=== PATIENT | female | born 1960 | race Caucasian/White ===

== ENCOUNTER 2019-05-08 12:54 | Inpatient (IN) | payer OTHER ==
[2019-05-08 13:33] VITALS: BMI 21.2
--- NOTE | 2019-05-08 14:07 | HP ---
COWS - Scale Resting Pulse: 1= [place] 81-100 Sweatin= Chills/Flushing Restless Observation: 1= Difficult to Sit Still Pupil Size: 2= Moderately Dilated Bone or Joint Aches: 4=Acute Joint/Muscle Pain Runny Nose/ Eye Tearin= Nasal Congestion GI Upset > 30mins: 3= Vomiting/Diarrhea Tremor Observation: 2= Slight Tremor Visible Yawning Observation: 1= 1-2x During Session Anxiety or Irritability: 2=Irritable/Anxious Goose Flesh Skin: 3=Piloerection COWS Score: 21 CIWA Score - Admission Criteria OASAS Guidelines: Admission for Medically Managed Detox: Requires at least one of the followin. CIWA greater than 12 2. Seizures within the past 24 hours 3. Delirium tremens within the past 24 hours 4. Hallucinations within the past 24 hours 5. Acute intervention needed for co occurring medical disorder 6. Acute intervention needed for co occurring psychiatric disorder 7. Severe withdrawal that cannot be handled at a lower level of care (continued vomiting, continued diarrhea, abnormal vital signs) requiring intravenous medication and/or fluids 8. Admitting History and Physical - Admission Chief Complaint: " I need help to stop using" History of Present Illness: 58 year old female with history of opioid dependence with withdrawals. She is seeking detox. She was earlier seen in [facility] where she had CT of head with no intracranial bleeding and no fractures. Also had CXR with prominent hilar region and nodule seen. She was told she possibly has lung cancer. She is using 2 bundles daily, last used 2 days ago, bought methadone yesterday on the [address]. Psych: Depression on meds; lexapro, prozac, lamictal,xanax prescribed by her PMD , Dr. Lenny Sheets in [place] PMH: oxygen dependent COPD, Emphysema Psurg: Broken finger right middle and index; left wrist surgery fracture. SHx: Smokes 2 PPD for many years. Admission [facility] Allergies/Adverse Reactions: Allergies Allergy/AdvReac Type Severity Reaction Status Date / Time No Known Allergies Allergy Verified 05/08/19 13:12 Exam Limitations: No Limitations - Ebola screening Have you traveled outside of the country in the last 21 days: No Have you had contact with anyone from an Ebola affected area: No Have you been sick,other than usual withdrawal symptoms: No Do you have a fever: No - Review of Systems Constitutional: Chills, Diaphoresis, Unintentional Wgt. Loss EENT: reports: No Symptoms Reported Respiratory: reports: No Symptoms reported Cardiac: reports: No Symptoms Reported GI: reports: Diarrhea, Nausea, Abdominal cramping : reports: No Symptoms Reported Musculoskeletal: reports: No Symptoms Reported Integumentary: reports: No Symptoms Reported Neuro: reports: No Symptoms reported Endocrine: reports: No Symptoms Reported Hematology: reports: No Symptoms Reported Psychiatric: reports: Judgement Intact, Mood/Affect Appropiate, Orientated x3 Other Systems: Reviewed and Negative Patient History - Patient Medical History Hx Anemia: No Hx Asthma: No Hx Chronic Obstructive Pulmonary Disease (COPD): Yes Hx Cancer: Yes (nodule recently found) Hx Cardiac Disorders: No Hx Congestive Heart Failure: No Hx Hypertension: Yes Hx Hypercholesterolemia: No Hx Pacemaker: No HX Cerebrovascular Accident: No Hx Seizures: No Hx Dementia: No Hx Diabetes: No Hx Gastrointestinal Disorders: No Hx Liver Disease: No Hx Genitourinary Disorders: No Hx Sexually Transmitted Disorders: No Hx Renal Disease (ESRD): No Hx Thyroid Disease: No Hx Human Immunodeficiency Virus (HIV): No Hx Hepatitis C: No Hx Depression: Yes Hx Suicide Attempt: No Hx Bipolar Disorder: No Hx Schizophrenia: No - Patient Surgical History Past Surgical History: Yes Other Surgical History: finger and wrist - PPD History Previous Implant?: Yes Documented Results: Negative w/o proof Implanted On Prior R Admission?: No Date: 01/17/19 Results: negative PPD to be Administered?: Yes - Smoking Cessation Smoking history: Current every day smoker Have you smoked in the past 12 months: Yes Aproximately how many cigarettes per day: 20 Hx Chewing Tobacco Use: No Initiated information on smoking cessation: Yes 'Breaking Loose' booklet given: 05/08/19 - Substances abused Heroin Other (specify): both IV and sniff Substance route: Injection Frequency: Daily Amount used: 2 bundles Age of first use: 48 Date of last use: 05/07/19 Admission Physical Exam BHS - Vital Signs Vital Signs: Vital Signs - 24 hr 05/08/19 13:12 Temperature 97.3 F L Pulse Rate 86 Respiratory 16 Rate Blood Pressure 133/93 - Physical General Appearance: Yes: Mild Distress, Thin, Tremorous, Irritable, Sweating HEENTM: Yes: EOMI, Hearing grossly Normal, Normal ENT Inspection, Normocephalic , Normal Voice, AXEL, Pharynx Normal, Tm's normal, Other (supraorbital and infraorbital ecchymoses) Respiratory: Yes: Chest Non-Tender, Lungs Clear, Normal Breath Sounds, No Respiratory Distress, No Accessory Muscle Use Neck: Yes: No masses,lesions,Nodules, Supple, Trachea in good position Breast: Yes: Breast Exam Deferred Cardiology: Yes: Regular Rhythm, S1, S2, Tachycardia Abdominal: Yes: Normal Bowel Sounds, Non Tender, Flat, Soft Genitourinary: Yes: Within Normal Limits Back: Yes: Normal Inspection Musculoskeletal: Yes: full range of Motion, Gait Steady, Pelvis Stable Extremities: Yes: Normal Capillary Refill, Normal Inspection, Normal Range of Motion, Non-Tender Neurological: Yes: 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 NML intact, Fully Oriented, Alert, Motor Strength 5/5, Normal Mood/Affect, Normal Response Integumentary: Yes: Normal Color, Warm - Diagnostic (1) Opioid dependence with withdrawal Current Visit: Yes Status: Acute (2) Depression Current Visit: Yes Status: Acute (3) Pulmonary nodule Current Visit: Yes Status: Acute (4) Hypertension Current Visit: Yes Status: Acute Screened but not Admitted - Documentation of Visit Screened but not Admitted: No Breathalyzer - Breathalyzer Breathalyzer: 0 Urine Drug Screen - Test Device Lot number: [id number] Expiration date: 11/14/20 - Control Is test valid?: Yes - Results Drug screen NEGATIVE: No Urine drug screen results: THC-Marijuana, MOP-Opiates, MTD-Methadone, BZO- Benzodiazepines Inpatient Rehab Admission - Rehab Decision to Admit Inpatient rehab admission?: No
[2019-05-08] MEDS ORDERED: METHOCARBAMOL 500 MG TABLET PO PRN (14:14)
[2019-05-08] MEDS ORDERED: ACETAMINOPHEN 325 MG TABLET (FP) PO PRN ×2 (14:14)
[2019-05-08] MEDS ORDERED: MAGNESIUM CITRATE 300 ML BOTTLE PO PRN (14:14)
[2019-05-08] MEDS ORDERED: MAG HYDROX/AL HYDROX/SIMETH 30 ML UNIT-DOSE CUP PO PRN (14:14)
[2019-05-08] MEDS ORDERED: cloNIDine HCL 0.1 MG TABLET PO PRN (14:14)
[2019-05-08] MEDS ORDERED: MENTHOL/PHENOL 1 EACH UD MM PRN (14:14)
[2019-05-08] MEDS ORDERED: METHADONE HCL 10 MG TABLET (FOR DETOX USE ONLY) PO ONE (15:10)
[2019-05-08] MEDS: NICOTINE 21 MG/24 HOURS TOPICAL PATCH TD SCH (15:51)
--- NOTE | 2019-05-08 17:23 | PN ---
"[facility] Progress Note Note: This report was requested by: Kadi Lua | Reference #: [id number] Others' Prescriptions [facility] Date: 1960 Address: [place] [address] Sex: Female Rx Written Rx Dispensed Drug Quantity Days Supply Prescriber Name 05/03/2019 05/03/2019 alprazolam 2 mg tablet 90 30 Viv[facility], [place] 05/03/2019 05/03/2019 dextroamp-amphetamin 30 mg tab 60 30 Vivino , [place] 04/03/2019 04/03/2019 alprazolam 2 mg tablet 90 30 [facility], [place] 04/03/2019 04/03/2019 dextroamp-amphetamin 30 mg tab 60 30 Vivino , [place] 03/06/2019 03/06/2019 dextroamp-amphetamin 30 mg tab 60 30 Vivino , [place] 03/06/2019 03/06/2019 alprazolam 2 mg tablet 90 30 [facility], [place] 01/29/2019 02/02/2019 alprazolam 2 mg tablet 90 30 [facility], [place] 01/29/2019 02/02/2019 dextroamp-amphetamin 30 mg tab 60 30 [facility] , [place] 01/23/2019 01/24/2019 bup[facility]ine[facility] 8[facility]2 [facility] 01/08/2019 alprazolam 2 mg tablet 90 30 [facility], [place] 01/04/2019 01/08/2019 dextroamp-amphetamin 30 mg tab 60 30 [facility] , [place] 11/09/2018 11/12/2018 dextroamp-amphetamin 30 mg tab 60 30 [facility] , [place] 11/09/2018 11/12/2018 [facility]olam [facility] [address] tablet [address] [facility] [place] Patient Name: [facility] Date: 1960 Address: [address] [place], [place] [address] [address] Sex: Female Rx Written Rx Dispensed Drug Quantity Days Supply Prescriber Name 10/10/2018 10/15/2018 dextroamp-amphetamin 30 mg tab 60 30 Viv[facility] , [place] 10/10/2018 10/13/2018 alprazolam 2 mg tablet 90 30 Viv[facility], [place] 09/14/2018 09/15/2018 alprazolam 2 mg tablet 90 30 Viv[facility], [place] 09/14/2018 09/14/2018 dextroamp-amphetamin 30 mg tab 60 30 [facility] , [place] 08/17/2018 08/17/2018 alprazolam 2 mg tablet 90 30 [facility], [place] 08/17/2018 08/17/2018 dextroamp-amphetamin 30 mg tab 60 30 [facility] , [place] 07/20/2018 07/20/2018 alprazolam 2 mg tablet 90 30 [facility], [place] 07/20/2018 07/20/2018 dextroamp-amphetamin 30 mg tab 60 30 [facility] , [place] 06/22/2018 06/22/2018 dextroamp-amphetamin 30 mg tab 60 30 [facility] , [place] 06/22/2018 06/22/2018 alprazolam 2 mg tablet 90 30 [facility], [place] 05/25/2018 05/25/2018 alprazolam 2 mg tablet 90 30 [facility], [place] 05/25/2018 05/25/2018 dextroamp-amphetamin 30 mg tab 60 30 [facility] , [place] 04/27/2018 05/11/2018 dext[facility]amp[facility]amphetamin 30 mg tab [facility] [place] * - Drugs marked with an asterisk are compound drugs. If the compound drug is made up of more than one controlled substance, then each controlled Vital Signs - 24 hr 05/08/19 13:12 Temperature 97.3 F L Pulse Rate 86 Respiratory 16 Rate Blood Pressure 133/93 pt requesting xanax rx , reports severe anxiety , reports rx x 3-4 years. P : Valium taper . Pt agreeable w/ POC"
[2019-05-08] MEDS ORDERED: diazePAM 5 MG TABLET PO ONE (17:45)
[2019-05-08 17:48] LABS: HEMATOCRIT 42.4 % (32.4-45.2); HEMOGLOBIN 14.2 GM/dL (10.7-15.3); MCH 30.3 pg (25.7-33.7); MCHC 33.5 g/dl (32.0-36.0); MEAN CELL VOLUME 90.5 fl (80-96); MEAN PLT VOLUME 8.8 fl (7.5-11.1); PLATELET COUNT 357 K/MM3 (134-434); RBC 4.68 M/mm3 (3.60-5.2); RDW 15.4 % (11.6-15.6)
[2019-05-08 18:02] LABS: ALBUMIN 3.9 g/dl (3.4-5.0); BILIRUBIN,TOTAL 0.4 mg/dL (0.2-1); BLOOD UREA NITROGEN 5.8 mg/dL (7-18); CALCIUM 9.9 mg/dL (8.5-10.1); CREATININE 0.7 mg/dL (0.55-1.3); POTASSIUM 4.3 mmol/L (3.5-5.1); TOT PROT 7.1 g/dl (6.4-8.2)
[2019-05-08] MEDS: diazePAM 5 MG TABLET PO SCH (21:14)
[2019-05-08] MEDS: THIAMINE HCL 100 MG TABLET (FP) PO SCH (21:14)
[2019-05-08] MEDS: FLUoxetine HCL 10 MG CAPSULE PO SCH (21:14)
[2019-05-08] MEDS: BUDESONIDE/FORMETEROL FUMARATE 160/4.5 mcg INHALER IH SCH (21:17)
[2019-05-08] MEDS: ALBUTEROL SO4 HFA INHALER IH PRN (21:18)
[2019-05-09] MEDS: diazePAM 5 MG TABLET PO SCH ×3 (05:48→22:01)
[2019-05-09] MEDS: IBUPROFEN 400 MG TABLET (FP) PO PRN ×2 (06:40→22:01)
[2019-05-09] MEDS ORDERED: METHADONE HCL 5 MG TABLET (FOR DETOX USE ONLY) ONE (09:17)
[2019-05-09] MEDS ORDERED: METHADONE HCL 10 MG TABLET (FOR DETOX USE ONLY) ONE (09:17)
[2019-05-09] MEDS ORDERED: METHADONE (DETOX) 20 MG, METHADONE (DETOX) 5 MG PO ONE (10:00)
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
[2019-05-09] MEDS: PRENATAL VITAMINS W/ FOLIC ACID TABLET (FP) PO SCH (10:59)
[2019-05-09] MEDS: NICOTINE 21 MG/24 HOURS TOPICAL PATCH TD SCH (10:59)
[2019-05-09] MEDS: lamoTRIgine 100 MG TABLET PO SCH (10:59)
[2019-05-09] MEDS: BUDESONIDE/FORMETEROL FUMARATE 160/4.5 mcg INHALER IH SCH ×2 (10:59→22:00)
[2019-05-09] MEDS: ESCITALOPRAM OXALATE 20 MG TABLET PO SCH (10:59)
[2019-05-09] MEDS: diazePAM 5 MG TABLET PO PRN ×2 (11:02→17:25)
--- NOTE | 2019-05-09 12:15 | PN ---
BHS COWS - Scale Resting Pulse: 0= [place] 80 or Below Sweatin= Chills/Flushing Restless Observation: 1= Difficult to Sit Still Pupil Size: 0= Normal to Room Light Bone or Joint Aches: 0= None Runny Nose/ Eye Tearin= None GI Upset > 30mins: 2= Nausea/Diarrhea Tremor Observation of Outstretched Hands: 0= None Yawning Observation: 0= None Anxiety or Irritability: 2=Irritable/Anxious Goose Flesh Skin: 0=Smooth Skin COWS Score: 6 BHS Progress Note (SOAP) Subjective: Complaints include: nausea, anxious, diaphoresis Objective: 05/09/19 12:20 Laboratory Last Values WBC 6.0 K/mm3 (4.0-10.0) 05/08/19 14:50 RBC 4.68 M/mm3 (3.60-5.2) 05/08/19 14:50 Hgb 14.2 GM/dL (10.7-15.3) 05/08/19 14:50 Hct 42.4 % (32.4-45.2) 05/08/19 14:50 MCV 90.5 fl (80-96) 05/08/19 14:50 MCH 30.3 pg (25.7-33.7) 05/08/19 14:50 MCHC 33.5 g/dl (32.0-36.0) 05/08/19 14:50 RDW 15.4 % (11.6-15.6) 05/08/19 14:50 Plt Count 357 K/MM3 (134-434) 05/08/19 14:50 MPV 8.8 fl (7.5-11.1) 05/08/19 14:50 Sodium 138 mmol/L (136-145) 05/08/19 14:50 Potassium 4.3 mmol/L (3.5-5.1) 05/08/19 14:50 Chloride 104 mmol/L (98-107) 05/08/19 14:50 Carbon Dioxide 30 mmol/L (21-32) 05/08/19 14:50 Anion Gap 5 MMOL/L (8-16) L 05/08/19 14:50 BUN 5.8 mg/dL (7-18) L 05/08/19 14:50 Creatinine 0.7 mg/dL (0.55-1.3) 05/08/19 14:50 Est GFR (CKD-EPI)AfAm 111.47 05/08/19 14:50 Est GFR (CKD-EPI)NonAf 96.18 05/08/19 14:50 Random Glucose 99 mg/dL (74-106) 05/08/19 14:50 Calcium 9.9 mg/dL (8.5-10.1) 05/08/19 14:50 Total Bilirubin 0.4 mg/dL (0.2-1) 05/08/19 14:50 AST 18 U/L (15-37) 05/08/19 14:50 ALT 26 U/L (13-61) 05/08/19 14:50 Alkaline Phosphatase 105 U/L (45-117) 05/08/19 14:50 Total Protein 7.1 g/dl (6.4-8.2) 05/08/19 14:50 Albumin 3.9 g/dl (3.4-5.0) 05/08/19 14:50 RPR Titer Nonreactive (NONREACTIVE) 05/08/19 14:50 Vital Signs Temperature 97.7 F 05/09/19 06:55 Pulse Rate 78 05/09/19 06:55 Respiratory Rate 18 05/09/19 06:55 Blood Pressure 106/77 05/09/19 06:55 O2 Sat by Pulse Oximetry (%) Gnl: WDWN, appears anxious/tearful MS: awake, alert, normal language function Motor: ambulating without difficulty, moves all limbs symmetrically Assessment: 05/09/19 12:21 1. Opiod withdrawal 2. Anxiety Plan: 1. continue Methadone protocol 2. Anxiety: saw Dr. Chambers today, orders written for prior psychiatric medications
[2019-05-09] MEDS: ALBUTEROL SO4 HFA INHALER IH PRN (13:09)
--- NOTE | 2019-05-09 15:15 | EKG ---
Test Reason : Blood Pressure : / mmHG Vent. Rate : 068 BPM Atrial Rate : 068 BPM P-R Int : 134 ms QRS Dur : 100 ms QT Int : 386 ms P-R-T Axes : 074 045 066 degrees QTc Int : 410 ms NORMAL SINUS RHYTHM INCOMPLETE RIGHT BUNDLE BRANCH BLOCK NONSPECIFIC T WAVE ABNORMALITY ABNORMAL ECG NO PREVIOUS ECGS AVAILABLE Confirmed by KATRIN SANON MD ([id number]) on 05/09/2019 3:14:44 PM Referred By: Confirmed By:KATRIN SANON MD
[2019-05-09] MEDS: hydrOXYzine PAMOATE 25 MG CAPSULE (FP) PO PRN (20:00)
[2019-05-09] MEDS: THIAMINE HCL 100 MG TABLET (FP) PO SCH (21:59)
[2019-05-09] MEDS: FLUoxetine HCL 10 MG CAPSULE PO SCH (21:59)
[2019-05-10] MEDS: hydrOXYzine PAMOATE 25 MG CAPSULE (FP) PO PRN (05:42)
[2019-05-10] MEDS: diazePAM 5 MG TABLET PO SCH ×2 (05:42→17:12)
[2019-05-10] MEDS: IBUPROFEN 400 MG TABLET (FP) PO PRN ×2 (05:43→21:20)
[2019-05-10] MEDS ORDERED: METHADONE HCL 10 MG TABLET (FOR DETOX USE ONLY) PO ONE (10:00)
[2019-05-10] MEDS: PRENATAL VITAMINS W/ FOLIC ACID TABLET (FP) PO SCH (10:28)
[2019-05-10] MEDS: lamoTRIgine 100 MG TABLET PO SCH (10:28)
[2019-05-10] MEDS: ESCITALOPRAM OXALATE 20 MG TABLET PO SCH (10:29)
[2019-05-10] MEDS: NICOTINE 21 MG/24 HOURS TOPICAL PATCH TD SCH (10:30)
[2019-05-10] MEDS: BUDESONIDE/FORMETEROL FUMARATE 160/4.5 mcg INHALER IH SCH ×2 (10:30→21:20)
[2019-05-10] MEDS: diazePAM 5 MG TABLET PO PRN ×3 (10:31→21:21)
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
[2019-05-10] MEDS: MAGNESIUM HYDROX 2400MG/30ML ORAL SUSPENSION 30 ML CUP PO PRN (13:54)
[2019-05-10] MEDS: THIAMINE HCL 100 MG TABLET (FP) PO SCH (21:20)
[2019-05-10] MEDS: FLUoxetine HCL 10 MG CAPSULE PO SCH (21:20)
[2019-05-10] MEDS: MELATONIN 5 MG TABLETS PO PRN (21:21)
[2019-05-11] MEDS: ALBUTEROL SO4 HFA INHALER IH PRN ×2 (05:41→18:11)
[2019-05-11] MEDS: MAGNESIUM HYDROX 2400MG/30ML ORAL SUSPENSION 30 ML CUP PO PRN (05:43)
[2019-05-11] MEDS: IBUPROFEN 400 MG TABLET (FP) PO PRN (05:43)
[2019-05-11] MEDS ORDERED: diazePAM 5 MG TABLET PO ONE (06:00)
[2019-05-11] MEDS ORDERED: METHADONE HCL 10 MG TABLET (FOR DETOX USE ONLY) ONE (09:19)
[2019-05-11] MEDS ORDERED: METHADONE HCL 5 MG TABLET (FOR DETOX USE ONLY) ONE (09:19)
[2019-05-11] MEDS ORDERED: METHADONE (DETOX) 10 MG, METHADONE (DETOX) 5 MG PO ONE (10:00)
[2019-05-11] MEDS: lamoTRIgine 100 MG TABLET PO SCH (10:24)
[2019-05-11] MEDS: ESCITALOPRAM OXALATE 20 MG TABLET PO SCH (10:24)
[2019-05-11] MEDS: PRENATAL VITAMINS W/ FOLIC ACID TABLET (FP) PO SCH (10:25)
[2019-05-11] MEDS: BUDESONIDE/FORMETEROL FUMARATE 160/4.5 mcg INHALER IH SCH ×2 (10:25→22:47)
[2019-05-11] MEDS: NICOTINE 21 MG/24 HOURS TOPICAL PATCH TD SCH (10:25)
[2019-05-11] MEDS: SENNOSIDES/DOCUSATE COMBO (SENNA PLUS) TABLET (UD) PO SCH ×2 (12:18→22:47)
[2019-05-11] MEDS: LIDOCAINE 5% TOPICAL PATCH TP SCH (12:18)
[2019-05-11] MEDS: diazePAM 5 MG TABLET PO PRN ×3 (13:45→22:50)
--- NOTE | 2019-05-11 17:38 | PN ---
BHS COWS - Scale Resting Pulse: 0= [place] 80 or Below Sweatin= No chills or Flushing Restless Observation: 1= Difficult to Sit Still Pupil Size: 0= Normal to Room Light Bone or Joint Aches: 2= Severe Diffuse Aches Runny Nose/ Eye Tearin= None GI Upset > 30mins: 1= Stomach Cramp (Constipation.) Tremor Observation of Outstretched Hands: 0= None Yawning Observation: 1= 1-2x During Session Anxiety or Irritability: 4=Extreme Anxiety Goose Flesh Skin: 0=Smooth Skin COWS Score: 9 S Progress Note (SOAP) Subjective: Anxious, Restless, Body Aches, Constipation. Objective: PATIENT A & O X 3, OBSERVED AMBULATING ON DETOX UNIT UNASSISTED. IN NO ACUTE DISTRESS. 05/11/19 17:36 Vital Signs Temperature 97.5 F L 05/11/19 12:27 Pulse Rate 63 05/11/19 12:27 Respiratory Rate 16 05/11/19 12:27 Blood Pressure 120/71 05/11/19 12:27 O2 Sat by Pulse Oximetry (%) Laboratory Tests 05/08/19 05/08/19 05/08/19 13:43 14:50 14:50 WBC 6.0 RBC 4.68 Hgb 14.2 Hct 42.4 MCV 90.5 MCH 30.3 MCHC 33.5 RDW 15.4 Plt Count 357 MPV 8.8 Sodium 138 Potassium 4.3 Chloride 104 Carbon Dioxide 30 Anion Gap 5 L BUN 5.8 L Creatinine 0.7 Est GFR (CKD-EPI)AfAm 111.47 Est GFR (CKD-EPI)NonAf 96.18 Random Glucose 99 Calcium 9.9 Total Bilirubin 0.4 AST 18 ALT 26 Alkaline Phosphatase 105 Total Protein 7.1 Albumin 3.9 POC Urine HCG, Qual Negative RPR Titer 05/08/19 14:50 WBC RBC Hgb Hct MCV MCH MCHC RDW Plt Count MPV Sodium Potassium Chloride Carbon Dioxide Anion Gap BUN Creatinine Est GFR (CKD-EPI)AfAm Est GFR (CKD-EPI)NonAf Random Glucose Calcium Total Bilirubin AST ALT Alkaline Phosphatase Total Protein Albumin POC Urine HCG, Qual RPR Titer Nonreactive LABS NOTED. Assessment: 05/11/19 17:37 WITHDRAWAL SYMPTOMS. Plan: CONTINUE DETOX. INCREASE DAILY ORAL WATER INTAKE. DUE TO SEVERITY OF WITHDRAWAL SYMPTOMS, PARTICULARLY ANXIETY, ADDITIONAL 1 DAY OF PRN VALIUM ORDERED FOR PATIENT.
[2019-05-11] MEDS: THIAMINE HCL 100 MG TABLET (FP) PO SCH (22:47)
[2019-05-11] MEDS: LIDOCAINE PATCH REMOVAL MC SCH (22:47)
[2019-05-11] MEDS: FLUoxetine HCL 10 MG CAPSULE PO SCH (22:47)
[2019-05-11] MEDS: MELATONIN 5 MG TABLETS PO PRN (22:49)
[2019-05-12] MEDS: IBUPROFEN 400 MG TABLET (FP) PO PRN (04:20)
[2019-05-12] MEDS: NICOTINE 21 MG/24 HOURS TOPICAL PATCH TD SCH (09:40)
[2019-05-12] MEDS: LIDOCAINE 5% TOPICAL PATCH TP SCH (09:42)
[2019-05-12] MEDS: ESCITALOPRAM OXALATE 20 MG TABLET PO SCH (09:42)
[2019-05-12] MEDS: lamoTRIgine 100 MG TABLET PO SCH (09:42)
[2019-05-12] MEDS ORDERED: METHADONE HCL 10 MG TABLET (FOR DETOX USE ONLY) PO ONE (10:00)
[2019-05-12] MEDS: SENNOSIDES/DOCUSATE COMBO (SENNA PLUS) TABLET (UD) PO SCH ×2 (12:17→22:20)
[2019-05-12] MEDS: PRENATAL VITAMINS W/ FOLIC ACID TABLET (FP) PO SCH (12:17)
[2019-05-12] MEDS: BUDESONIDE/FORMETEROL FUMARATE 160/4.5 mcg INHALER IH SCH ×2 (12:17→22:43)
[2019-05-12] MEDS ORDERED: diazePAM 5 MG TABLET PO PRN (12:40)
--- NOTE | 2019-05-12 17:45 | PN ---
BHS COWS - Scale Resting Pulse: 0= [place] 80 or Below Sweatin= Chills/Flushing Restless Observation: 0= Sits Still Pupil Size: 0= Normal to Room Light Bone or Joint Aches: 1= Mild Discomfort Runny Nose/ Eye Tearin= Runny Nose/Eyes GI Upset > 30mins: 1= Stomach Cramp Tremor Observation of Outstretched Hands: 0= None Yawning Observation: 0= None Anxiety or Irritability: 1=Feels Anxious/Irritable Goose Flesh Skin: 0=Smooth Skin COWS Score: 6 BHS Progress Note (SOAP) Subjective: Feels ok, patient requested to be discharged tomorrow at 6:30am because she has an appt with her PCP Objective: 05/12/19 17:45 Last Vital Signs Temp Pulse Resp BP Pulse Ox 98.1 F 64 17 141/80 05/12/19 17:40 05/12/19 17:40 05/12/19 17:40 05/12/19 17:40 Elevated b/p: has htn, not on medication Laboratory Tests 05/08/19 05/08/19 05/08/19 13:43 14:50 14:50 WBC 6.0 RBC 4.68 Hgb 14.2 Hct 42.4 MCV 90.5 MCH 30.3 MCHC 33.5 RDW 15.4 Plt Count 357 MPV 8.8 Sodium 138 Potassium 4.3 Chloride 104 Carbon Dioxide 30 Anion Gap 5 L BUN 5.8 L Creatinine 0.7 Est GFR (CKD-EPI)AfAm 111.47 Est GFR (CKD-EPI)NonAf 96.18 Random Glucose 99 Calcium 9.9 Total Bilirubin 0.4 AST 18 ALT 26 Alkaline Phosphatase 105 Total Protein 7.1 Albumin 3.9 POC Urine HCG, Qual Negative RPR Titer 05/08/19 14:50 WBC RBC Hgb Hct MCV MCH MCHC RDW Plt Count MPV Sodium Potassium Chloride Carbon Dioxide Anion Gap BUN Creatinine Est GFR (CKD-EPI)AfAm Est GFR (CKD-EPI)NonAf Random Glucose Calcium Total Bilirubin AST ALT Alkaline Phosphatase Total Protein Albumin POC Urine HCG, Qual RPR Titer Nonreactive Labs reviewed Assessment: 05/12/19 17:47 Withdrawal sxs Plan: Continue detox Encouraged PO water intake Patient scheduled for discharge tomorrow
[2019-05-12] MEDS: hydrOXYzine PAMOATE 25 MG CAPSULE (FP) PO PRN (18:21)
[2019-05-12] MEDS: BISMUTH SUBSALICYLATE 262 MG/15 ML BTL PO PRN (20:38)
[2019-05-12] MEDS: THIAMINE HCL 100 MG TABLET (FP) PO SCH (22:20)
[2019-05-12] MEDS: FLUoxetine HCL 10 MG CAPSULE PO SCH (22:20)
[2019-05-12] MEDS: MELATONIN 5 MG TABLETS PO PRN (22:21)
[2019-05-12] MEDS: LIDOCAINE PATCH REMOVAL MC SCH (22:43)
[2019-05-12 23:30] VITALS: BP 119/70; PULSE 60; TEMP 97.7
[2019-05-13] MEDS: BISMUTH SUBSALICYLATE 262 MG/15 ML BTL PO PRN ×2 (01:46→04:46)
[2019-05-13] MEDS: IBUPROFEN 400 MG TABLET (FP) PO PRN (05:38)
[2019-05-13] MEDS ORDERED: METHADONE HCL 5 MG TABLET (FOR DETOX USE ONLY) PO ONE (06:00)
== END 2019-05-13 06:45 | disposition home or self-care (01) | DRG 773 ==
LOC: YASAS 12:54 → Y6N 14:38
PROVIDERS: ADMIT Allergy & Immunology; ATTEND Allergy & Immunology
PROC: HZ2ZZZZ Detoxification Services for Substance Abuse Treatment (ICD-10-PCS; principal; 2019-05-08)
DX: F11.23 Opioid dependence with withdrawal (principal); F17.210 Nicotine dependence, cigarettes, uncomplicated; F41.9 Anxiety disorder, unspecified; F31.9 Bipolar disorder, unspecified; F90.9 Attention-deficit hyperactivity disorder, unspecified type; F19.24 Other psychoactive substance dependence with psychoactive substance-induced mood disorder; F19.282 Other psychoactive substance dependence with psychoactive substance-induced sleep disorder; I10 Essential (primary) hypertension; J43.9 Emphysema, unspecified; R91.1 Solitary pulmonary nodule; R00.0 Tachycardia, unspecified
CPT/HCPCS: 36415; 80053; 81025; 85027; 86593; 93005; 93010